=== PATIENT | male | born 1970 | race Caucasian/White ===

== ENCOUNTER 2022-09-16 02:22 | Emergency (ER) | payer OTHER, SELFPAY ==
[2022-09-16] VITALS (9 sets, daily range): BP systolic 100–173; BP diastolic 55–108; PULSE 74–108; RESP 12–16; TEMP 36.5; O2SAT 90–99; BMI 25.1
--- NOTE | 2022-09-16 | CT_ITS ---
Patient: TEO HONG Facility:?[facility] Patient ID:?[id number] Site Patient [id number] Site :?1970 Study:?CT-Head -09/16/2022 2:58:04 AM Ordering Physician:GOKUL Final Report: CT HEAD 09/16/2022 INDICATION: Fall. Intoxication. TECHNIQUE: CT brain without contrast. COMPARISON: None. FINDINGS: No acute intracranial hemorrhage. No extra-axial collection. No mass effect or midline shift. No ventricular dilatation. Basal cisterns are patent. Calvarium is intact. Mild polypoid mucosal thickening in the right maxillary sinus. Visualized paranasal sinuses and mastoid air cells are otherwise clear. Orbits are unremarkable. IMPRESSION: No acute intracranial abnormality. Fermín Lopez M.D. Diagnostic/Musculoskeletal Radiologist [email or web address] TERRENCE/lewis / DW/Dictated by: Fermín Lopez MD @ 09/16/2022 4:01:00 AM Signed by:?Fermín Lopez MD @09/16/2022 4:47:17 AM (Electronic Signature)
--- NOTE | 2022-09-16 | CT_ITS ---
Patient: TEO HONG Facility:?[facility] Patient ID:?[id number] Site Patient ID:[id number] Site :?1970 Study:?CT-Spine Cervical -09/16/2022 3:01:14 AM Ordering Physician:GOKUL Final Report: CT CERVICAL SPINE 09/16/2022 HISTORY: Fall. Intoxication. TECHNIQUE: CT cervical spine without contrast. COMPARISON: None. FINDINGS: No fracture. Reversal of the cervical lordosis at C4. Mild anterolisthesis of C3 on C4. Moderate disc space narrowing at C4-5 and C5-6. Mild disc space narrowing at C6-7. Multilevel uncovertebral joint and facet degenerative changes. Mild spinal canal stenosis and moderate to severe bilateral foraminal stenosis at C4-5. Mild spinal canal stenosis and moderate to severe bilateral foraminal stenosis at C5-6. Moderate to severe bilateral foraminal stenosis at C6-7. Bilateral carotid atherosclerotic calcifications. IMPRESSION: 1. No acute abnormality of the cervical spine. 2. Multilevel degenerative changes. Fermín Lopez M.D. Diagnostic/Musculoskeletal Radiologist [email or web address] TERRENCE/lewis / DW/Dictated by: Fermín Lopez MD @ 09/16/2022 4:04:00 AM Signed by:?Fermín Lopez MD @09/16/2022 5:03:48 AM (Electronic Signature)
--- NOTE | 2022-09-16 04:52 | ED_ITS ---
HPI - Alcohol History of Present Illness HPI narrative: Room 5- this note was created in down time and cut into EMR post visit Patient presents with daughter because of head injury with loss of consciousness.? This was approximately 1 hour 45 minutes prior to arrival.? Patient was drinking outside of a local bar when he tripped and had a fall, causing him to strike his head on the sidewalk.? This was witnessed by the patient's adult sibling, his daughter gives most of the history.? They report a few seconds of loss of consciousness and spontaneous wake up.? No seizure-like activity.? Did not wet himself.? Has been quite intoxicated and difficult to monitor his mental status.? Daughter states that she has been told not to let someone with a head injury fall asleep, therefore she brings him in for evaluation.? He reports he has had approximately 10 drinks tonight which is not terribly unusual for him on the weekends.? He says that he feels fine.? He denies any pain.? Family has noticed a chipped tooth in the front.? This is new.? No history of seizures, no long-term neurological problems.? He does not take anticoagulants.? He denies vision changes, movement deficits, numbness and tingling.? Family agrees able to speak full sentences and can walk fairly steady. Past medical history they report is essentially benign.? He probably drinks socially too much alcohol and to often but otherwise has a history of depression and anxiety, not currently on any medications for this.? No drug allergies, no long-term medications, no recent surgeries.? Socially he is a smoker with regular alcohol use.? No pertinent travel. ROS per patient is negative times 12 systems.? Per family notable for the [facility] ed tooth, intoxication and head injury.? Otherwise denies times 12.? And no neurological changes or neck pain specifically. Vital signs reviewed in chart, noted to be stable except for some mild hype rtension.? Generally he is awake alert, speaking full sentences, rambles on, mildly intoxicated.? The head shows no obvious signs of trauma or deformity.? There is no depressions in the skull.? The ears with normal TMs, no blood.? The eyes with pupils are equal round, reactive to light normal extraocular movements.? The nose and facial bones appear grossly normal with no deformities.? The oropharynx with acyanotic lips.? The left upper central incisor has a small chip in the lateral lower portion.? No active bleeding.? Palpation of the teeth reveals no significant laxity or loose teeth.? Normal appearance of the tongue and palate.? The neck is supple there is no lymphadenopathy.? Normal range of motion.? No point tenderness to the cervical spine.? There is no tenderness to palpation of the thoracolumbar spine.? The heart with regular rate rhythm, no murmurs rubs or gallops.? The lungs with good air entry in all lung [place] no wheezes rales or rhonchi the abdomen is soft, nontender nondistended with no masses no hepatosplenomegaly.? The lower extremities have no pitting edema.? The skin has a slight abrasion to the right 4th finger near the nail.? It is hemostatic at this time.? He can move his upper and lower extremities with no deficits.? There is no tremor.? Speech is normal.? Mental status exam reveals that he is friendly, polite and cooperative but rambles on. Medical decision making: Patient intoxicated, cannot exclude significant injury.? CT scan of the head, cervical spine.? Labs for EtOH, basic metabolic panel, CBC recommended.? Daughter in agreement.? Awaiting studies. MDM - Alcohol MDM Narrative Medical decision making narrative: CT scan of the head, neck are reassuring per my interpretation, confirmed with radiology report. Laboratory studies are reassuring with the exception of elevated alcohol level which is not unexpected. Findings reviewed with family. Encouraged patient to cut down on alcohol usage. He will need to follow-up with dentist regarding the tooth fracture. Tylenol and ibuprofen as needed. Head injury precautions discussed. Lab Data Attestation: I reviewed the patient's lab results. Discharge Plan Discharge Clinical Impression: Alcohol intoxication, Mild closed head injury, Fracture of tooth Patient Disposition: Home w/ Parent or Adult Condition: Stable Instructions: Head Injury (ED) Additional Instructions: Discharge instructions Kristian Hinds Other than significant alcohol intoxication, your labs are reassuring.? Your blood alcohol level was 0.3.? This is almost 4 times the legal limit.? Your electrolytes, kidney function, basic blood counts are all reassuring.? The CT scan of your head and neck do not show any signs of bleeding, fracture or other abnormality.? This is also good news.? On exam, he have a chip in your left upper center tooth.? This does not need emergent attention but you should make a follow-up sometime within the next few weeks to see your dentist.? Treatment is mainly cosmetic, but they will discuss options with you.? Your likely to have headache for the next few days from your fall.? It is safe to sleep.? It is okay to use Tylenol and/or ibuprofen as needed for headache.? You?re likely to have some mild concussion symptoms including fatigue, irritability, headache and dizziness.? You should rest for the next 48 hours, light activity only and avoid alcohol for the next 2 weeks.? Come back to the emergency department if you have a seizure, unexplained passing out, persistent vomiting, unusual neurological changes or severe pain.? The amount of alcohol that you drink tonight is not safe.? You should limit your alcohol to no more than 3 beverages per 24 hours, no more than 2 days per week. Activity Level: Activity as Tolerated Discharge Diet: Regular and Other Diet Detail: No alcohol for 2 weeks to heal from concussion Follow Up/Referrals: Provider,Not a Local [Primary Care Provider] - Stand Alone Forms: whoactually Info Instructions
[2022-09-16 05:53] LABS: Carbon Dioxide* 27 mmol/L (20-32); Chloride* 104 mmol/L (96-114); Sodium* 144 mmol/L (135-149)
[2022-09-16 05:54] LABS: Blood Urea Nitrogen* 9 mg/dL (7-30); Calcium* 8.9 mg/dL (8.4-10.6); Est. Creatinine Clearance* 87.19; Estimated Glomerular Filt Rate 89 ml/min; Glucose* 106 mg/dL (60-115); Hemoglobin* 15.5 gm/dL (13.5-17.5); Red Blood Count 5.03 m/uL (4.30-5.90); White Blood Count* 8.42 K/uL (4.50-11.00)
[2022-09-16 05:55] LABS: Hematocrit 45.9 % (37.0-53.0); Mean Corpuscular HGB Conc 34 gm/dL (32-36); Mean Corpuscular Hemoglobin 31 pg (26-34); Mean Corpuscular Volume 91 fL (80-100); Platelet Count* 210 K/uL (140-440)
[2022-09-16 05:56] LABS: Basophils Percent Auto 0.5 % (0.0-3.0); Eosinophils Percent Auto 1.4 % (0.0-7.0); Immature Granulocytes Pct Auto 0.6 %; Monocytes Percent Auto 5.3 % (0.0-11.0); Neutrophils Percent Auto 63.2 % (42.0-72.0)
[2022-09-16 05:57] LABS: Slide Review Reflex No
== END 2022-09-16 07:25 | disposition home or self-care (01) ==
PROVIDERS: Emergency Provider Family Medicine
DX: F10.129 Alcohol abuse with intoxication, unspecified (principal)
CPT/HCPCS: 36415; 70450; 72125; 80048; 82077; 85025; 99283; 99284; 99291